=== PATIENT | male | born 1980 | race Caucasian/White ===

== ENCOUNTER → 2025-01-15 | Emergency (ER) | payer OTHER ==
[~2025-01-15] VITALS: Ht 175.3 cm; Wt 86.2 kg
[~2025-01-15] MED LIST: HYDROXYZINE PAM50 MG PO; hydrOXYzine PAMOATE 50 MG CAPSULE PO STA
== END | disposition home or self-care (01) ==
LOC: ER 22:10
DX: F41.9 Anxiety disorder, unspecified (principal)